=== PATIENT | female | born 1970 | race Caucasian/White ===

== ENCOUNTER → 2023-03-17 11:10 | Outpatient (BNVA) | payer OTHER, SELFPAY | PROVIDERS: Visit Provider Specialist | DX: M25.572 Pain in left ankle and joints of left foot; M76.62 Achilles tendinitis, left leg; M25.569 Pain in unspecified knee | CPT/HCPCS: 73560; 73565; 73610 ==

== ENCOUNTER 2023-07-26 10:26 | Emergency (ER) | payer OTHER, SELFPAY ==
--- NOTE | 2023-07-26 10:32 | ECG_ITS ---
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 Measurements Intervals [place] Rate: 70 P: 59 VA: 156 QRS: 56 QRSD: 97 T: 40 QT: 371 QTc: 402 Interpretive Statements SINUS RHYTHM POSSIBLE LEFT ATRIAL ENLARGEMENT [-0.1mV P-WAVE IN V1/V2] No previous ECG available for comparison Electronically Signed On 07-26-2023 15:51:36 CDT by Jim Manley M.D. [id number] f
[2023-07-26 10:34] VITALS: BP 169/96; PULSE 69; RESP 12; TEMP 36.9; O2SAT 100; BMI 62.1
--- NOTE | 2023-07-26 10:34 | ED_ITS ---
HPI - Chest Pain 2 General: Chief Complaint: Chest Pain Stated Complaint: chest pains History of Present Illness: Patient presents to the ER with complaints of left-sided chest pain that radiates to her back and sometimes up into her neck and into her left arm. This been going off and on for about the last 48 hours. Patient does not have a cardiac history personally. Patient is morbidly obese. Patient denies any shortness of breath, diaphoresis, says she has occasional nausea but no vomiting. Patient ambulated in the ER and appears to be nontoxic and in no acute distress. Patient has had gastric bypass surgery in the past. Review of Systems 2 General: Reports: 10 or more systems reviewed and unremarkable except in HPI and below Physical Exam 2 Const: COMMON NORMALS: no acute distress, average body habitus, patient oriented x3, no limitations, healthy appearing, alert and well nourished HENMT: COMMON NORMALS: normocephalic, atraumatic, hearing grossly normal bilaterally, external ears normal, Normal external nose present, moist oral mucous membranes and oropharynx normal HEAD & SCALP: normocephalic and atraumatic NOSE: Normal external nose present EXTERNAL EAR: Yes external ears normal Neck/C-Spine: COMMON NORMALS: no JVD Chest: COMMONS NORMALS: normal inspection of the chest and normal palpation of entire chest wall Resp: COMMON NORMALS: normal respiratory effort, No retractions, No use of accessory muscles and clear to auscultation bilaterally AUSCULTATION: clear to auscultation bilaterally Cardio: COMMON NORMALS: no JVD, regular rate, regular rhythm, S1 normal heart sound present, S2 normal heart sound present, No gallops present (Cardio), No clicks present (Cardio), No murmurs present (Cardio) and No rub (Cardio) R ATE: regular rate RHYTHM: regular rhythm HEART SOUNDS: S1 normal heart sound present and S2 normal heart sound present GI: COMMON NORMALS: Normal to inspection, nondistended, normoactive bowel sounds present, Soft to palpation, non-tender, No hepatosplenomegaly present and no masses PALPATION: Yes Soft to palpation and Yes No hepatosplenomegaly present Neuro: COMMON NORMALS: patient oriented x3 SENSORIUM/ORIENTATION: Yes alert Course 2 Vital Signs: Vital signs: Vital Signs Temperature 98.5 F 07/26/23 10:34 Pulse Rate 64 07/26/23 13:00 Respiratory Rate 21 H 07/26/23 13:00 Blood Pressure 134/85 07/26/23 13:00 Pulse Oximetry 96 07/26/23 13:00 Oxygen Delivery Me thod Room Air 07/26/23 13:00 MDM - Chest Pain Medical Decision Making Patient had chest pain workup included serial lab work, chest x-ray, serial EKGs, all of which was benign for acute cardiac cause of chest pain. Patient be discharged home to follow-up with her PCP for further evaluation and treatment. Differential Diagnosis Unlikely acute massive pulmonary embolism, acute respiratory failure, acute myocardial infarction, cardiac arrest or sudden cardiac Medical Records I reviewed the patient's medical records. Lab Data I reviewed the patient's lab results. 07/26/23 10:32 07/26/23 10:32 Radiology Impressions Chest X-Ray 07/26/23 10:35 IMPRESSION: No acute cardiopulmonary abnormality. Laboratory Results WBC 8.14 10^3/uL (3.29-11.43) 07/26/23 10:32 RBC 4.80 10^6/uL (3.85-5.65) 07/26/23 10:32 Hgb 13.60 g/dL (11.27-16.99) 07/26/23 10:32 Hct 42.3 % (36-47) 07/26/23 10:32 MCV 88.1 fl (85-98) 07/26/23 10:32 MCH 28.3 pg (27-33) 07/26/23 10:32 MCHC 32.2 g/dL (30-55) 07/26/23 10:32 RDW 13.2 % (12.1-15.1) 07/26/23 10:32 Plt Count 380 10^3/cmm (157-399) 07/26/23 10:32 MPV 9.1 fL (7.4-10.4) 07/26/23 10:32 Neut % (Auto) 66.9 % 07/26/23 10:32 Lymph % (Auto) 25.3 % 07/26/23 10:32 [place] % (Auto) 5.3 % 07/26/23 10:32 Eos % (Auto) 1.4 % 07/26/23 10:32 Baso % (Auto) 0.6 % 07/26/23 10:32 Neut # (Auto) 5.45 10^3/uL (1.8-7.7) 07/26/23 10:32 Lymph # (Auto) 2.1 10^3/uL (0.8-4.8) 07/26/23 10:32 [place] # (Auto) 0.4 10^3/uL (0.2-0.9) 07/26/23 10:32 Eos # (Auto) 0.1 10^3/uL (0.0-0.8) 07/26/23 10:32 Baso # (Auto) 0.1 10^3/uL (0.0-0.1) 07/26/23 10:32 Nucleated RBC % (auto) 0 % 07/26/23 10:32 Nucleated RBCs # 0.0 /100WBC 07/26/23 10:32 Sodium 143 mmol/L (136-145) 07/26/23 10:32 Potassium 4.5 mmol/L (3.5-5.1) 07/26/23 10:32 Chloride 104 mmol/L (98-107) 07/26/23 10:32 Carbon Dioxide 29 mmol/L (22-29) 07/26/23 10:32 Anion Gap 14.5 (5-19) 07/26/23 10:32 BUN 18 mg/dL (6-20) 07/26/23 10:32 Creatinine 0.7 mg/dL (0.5-0.9) 07/26/23 10:32 GFR Calculation 87.2 mL/min (90-130) L 07/26/23 10:32 Glucose 93 mg/dL (65-115) 07/26/23 10:32 Calculated Osmolality 298 mOsm/kg (285-295) H 07/26/23 10:32 Calcium 9.5 mg/dL (8.5-10.5) 07/26/23 10:32 Total Bilirubin 0.4 mg/dL (0.15-1.2) 07/26/23 10:32 AST 22 U/L (0-32) 07/26/23 10:32 ALT 22 U/L (0-33) 07/26/23 10:32 Alkaline Phosphatase 90 U/L (35-105) 07/26/23 10:32 Troponin T Baseline 9 ng/L (0-10) 07/26/23 10:32 Troponin T 120 Minute 7.84 ng/L (0-10) 07/26/23 12:29 Delta Troponin T -1.16 ABS# (0-10) L 07/26/23 12:29 Total Protein 7.8 g/dL (6.6-8.7) 07/26/23 10:32 Albumin 4.5 g/dL (3.5-5.2) 07/26/23 10:32 Globulin 3.3 g/dL (1.3-4.6) 07/26/23 10:32 All radiology interpretation(s) finalized by discharge EKG Data EKG 1: I personally reviewed and interpreted this EKG as follows: EKG interpretation date: 07/26/23 EKG interpretation time: 10:32 Prior EKG tracings: not available for review Interpretation: Ventricular rate 70 beats minute, IN interval 156, QRS duration 97, QTc 392, sinus rhythm EKG 2: I personally reviewed and interpreted this EKG as follows: EKG interpretation date: 07/26/23 EKG interpretation time: 13:19 Prior EKG tracings: available for review Interpretation: Ventricular rate 55 bpm, IN interval 167, QRS duration 102, QTc of 392, sinus bradycardia Discharge Plan Discharge Patient Disposition: Home Clinical Impression: Non-cardiac chest pain Condition: Stable Prescriptions: No Action multivitamin Tablet 1 tab PO DAILY ropinirole 1 mg tablet 1 mg PO BEDTIME albuterol sulfate 2.5 mg /3 mL (0.083 %) solution for nebulization 2.5 mg inhalation Q4H PRN (Reason: Shortness Of Breath Or Wheezing) Ivor 5-325 mg Tablet 1 tab PO Q6H PRN (Reason: Pain) clobetasol 0.05 % cream 1 applic TOPICAL .TWICE A WEEK Vitamin B-12 1,000 mcg Tablet 1,000 mcg PO DAILY ropinirole 0.25 mg tablet 0.25 mg PO DAILY PRN (Reason: Restless Leg(S)) iron 325 mg (65 mg iron) Tablet 325 mg PO .TWICE A WEEK levothyroxine 125 mcg tablet 125 mcg PO QAM albuterol sulfate 90 mcg/actuation HFA aerosol inhaler 2 puff INHALATION Q4H PRN (Reason: Shortness Of Breath) Flovent 110 mcg/actuation Hfa Aerosol Inhaler 1 puff INHALATION BID PRN (Reason: unknown) magnesium oxide 400 mg magnesium Tablet 800 mg PO DAILY turmeric root-geeta root ext 150-25 mg Tablet,Chewable 1 tab PO DAILY Discharge Orders: Discharge ED (Routine); Ordered 07/26/23 Ordered By: Tony Andersen Patient Instructions: Noncardiac Chest Pain (ED) Activity Restrictions/Additional Instructions: Your evaluation in ER did not show any acute cardiac cause of your chest pain. Your chest pain is felt to be noncardiac in nature. Please follow-up with your family practice physician for further evaluation and treatment as needed. If your chest pain worsens please feel free to return to the ER. Coding Level of Care Code ED Radio Disc Jockey for Kelly Hoffman
--- NOTE | 2023-07-26 10:35 | XRR_ITS ---
PROCEDURE INFORMATION: Exam: XR Chest Exam date and time: 07/26/2023 10:41 AM Age: 53 years old Clinical indication: Pain; Chest pressure; Additional info: Chest pain TECHNIQUE: Imaging protocol: Radiologic exam of the chest. Views: 1 view. COMPARISON: No relevant prior studies available. FINDINGS: Lungs: The lung parenchyma is clear. Pleural spaces: No pneumothorax. No large pleural effusion. Heart/Mediastinum: The cardiomediastinal silhouette is within normal limits. Bones/joints: Unremarkable. XR/XR chest 1V portable [id number] IMPRESSION: No acute cardiopulmonary abnormality.
[2023-07-26 10:40] VITALS: BP 169/96; PULSE 62; RESP 15; O2SAT 98
[2023-07-26 10:42] LABS: Basophils # 0.1 10^3/uL (0.0-0.1); Basophils % 0.6 %; Eosinophils # 0.1 10^3/uL (0.0-0.8); Eosinophils % 1.4 %; Hematocrit 42.3 % (36-47); Lymphocytes # 2.1 10^3/uL (0.8-4.8); Lymphocytes % 25.3 %; Mean Corpuscular HGB Conc 32.2 g/dL (30-55); Mean Corpuscular Hemoglobin 28.3 pg (27-33); Mean Corpuscular Volume 88.1 fl (85-98); Mean Platelet Volume 9.1 fL (7.4-10.4); Monocytes # 0.4 10^3/uL (0.2-0.9); Monocytes % 5.3 %; Neutrophils # 5.45 10^3/uL (1.8-7.7); Neutrophils % 66.9 %; Nucleated Red Blood Cells % 0 %; Platelet Count 380 10^3/cmm (157-399); Red Cell Distribution Width 13.2 % (12.1-15.1); White Blood Count 8.14 10^3/uL (3.29-11.43)
[2023-07-26 10:58] LABS: Alanine Aminotransferase 22 U/L (0-33); Albumin Level 4.5 g/dL (3.5-5.2); Alkaline Phosphatase 90 U/L (35-105); Anion Gap 14.5 (5-19); Aspartate Amino Transferase 22 U/L (0-32); Blood Urea Nitrogen 18 mg/dL (6-20); Calcium 9.5 mg/dL (8.5-10.5); Carbon Dioxide 29 mmol/L (22-29); Chloride 104 mmol/L (98-107); Creatinine Clr Calc Pharmacy 137.9681; Globulin 3.3 g/dL (1.3-4.6); Glomerular Filtration Rate 87.2 mL/min (90-130); Glucose 93 mg/dL (65-115); Osmolality Calculated 298 mOsm/kg (285-295); Potassium 4.5 mmol/L (3.5-5.1); Sodium 143 mmol/L (136-145); Total Bilirubin 0.4 mg/dL (0.15-1.2); Total Protein 7.8 g/dL (6.6-8.7)
[2023-07-26 10:59] LABS: Troponin(5th) Baseline 9 ng/L (0-10)
--- NOTE | 2023-07-26 12:27 | PC.PHAR ---
pt states she takes care of her own medications-pts pharmacy [facility] not open [facility] day on [address]-pt states she has an old rx for norco 5/325 that she uses prn states maybe fills once a year ext doesnt show when last filled-pt states she has a flovent inhaler and uses prn ext doesnt show when last filled-pt states still takes ropinirole 1mg hs ext shows last filled 01/21/23 90d/s-pt states still takes levothyroxine 125mcg daily filled 01/30/23 90d/s-notes are made in the pharmacy comments
--- NOTE | 2023-07-26 12:35 | ECG_ITS ---
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 Measurements Intervals [place] Rate: 55 P: 56 VA: 167 QRS: 57 QRSD: 102 T: 43 QT: 403 QTc: 387 Interpretive Statements SINUS BRADYCARDIA Compared to ECG 07/26/2023 10:32:15 Sinus rhythm no longer present Electronically Signed On 07-26-2023 15:57:59 CDT by Jim Manley M.D. [email or web address] memorial hospitalLift Agencylicking memorial hospitalBar Harbor Bio[employer]/store/OM/[id number]
[2023-07-26 12:51] VITALS: BP 145/81; PULSE 61; RESP 20; O2SAT 98
[2023-07-26 13:00] VITALS: BP 134/85; PULSE 64; RESP 21; O2SAT 96
[2023-07-26 13:03] LABS: Troponin 5 2HR 7.84 ng/L (0-10)
[2023-07-26 13:05] LABS: Troponin 5 2HR Delta -1.16 ABS# (0-10)
[2023-07-26 13:53] VITALS: BP 141/65; PULSE 62; RESP 13; O2SAT 97
== END 2023-07-26 13:52 | disposition home or self-care (01) ==
PROVIDERS: Emergency Provider Emergency Medicine
DX: R07.89 Other chest pain (principal)
CPT/HCPCS: 36415; 71045; 80053; 84484; 85025; 93005; 99285

== ENCOUNTER 2025-02-24 14:17 | Outpatient (CLI) | payer BC, SELFPAY ==
--- NOTE | 2025-02-24 14:40 | MM_ITS ---
WS: [id number] BILATERAL 3D TOMOSYNTHESIS DIGITAL SCREENING MAMMOGRAPHY WITH CAD CLINICAL INFORMATION: SCREENING HISTORY: Screening mammogram. No current complaints. COMPARISON: Prior reports available. No prior images available. TECHNIQUE: Bilateral CC and MLO views. FINDINGS: Scattered fibroglandular densities bilaterally. No suspicious focal mass, asymmetry, calcifications, or architectural distortion. No evidence of malignancy. MM/MM scr BI tomosynthesis [id number] IMPRESSION: DENSITY: There are scattered areas of fibroglandular density. BI-RADS: 1 - Negative. FOLLOW UP: 1 Year Follow-up Recommend return to annual screening mammography.
== END 2025-02-24 14:18 | disposition home or self-care (01) ==
LOC: MOBLMAM 14:19
PROVIDERS: PCP Electrodiagnostic Medicine; Visit Provider Electrodiagnostic Medicine
DX: Z12.31 Encounter for screening mammogram for malignant neoplasm of breast (principal); R92.323 Mammographic fibroglandular density, bilateral breasts
CPT/HCPCS: 77063; 77067